=== PATIENT | male | born 1995 | race Caucasian/White ===

== ENCOUNTER 2017-05-18 20:10 | Inpatient (IN) | payer OTHER ==
[2017-05-18] MEDS ORDERED: Fentanyl 100 MCG/2 ML VIAL ONE ×2 (20:21→22:39)
[2017-05-18] MEDS ORDERED: CEFAZOLIN/Water 2 GM/20 ML SYRINGE ONE (20:22)
[2017-05-18 20:30] LABS: #Basophils 0.1 thou/uL (0.0-0.2); #Eosinphils 0.3 thou/uL (0.0-0.7); #Lymphocytes 5.2 thou/uL (1.20-3.40); #Monocytes 1.1 thou/uL (0.11-0.59); %Basophils 0.5 % (0.0-1.0); %Eosinophils 2.9 % (0.0-10.0); %Lymphocytes 48.9 % (28.0-48.0); %Monocytes 10.4 % (0.0-4.0); Hematocrit 44.8 % (42.0-52.0); Mean Platelet Volume 7.3 fL (7.4-10.4); Red Blood Cell (RBC) Count 4.82 mill/uL (4.00-5.20); White Blood Cell (WBC) Count 10.7 thou/uL (4.8-10.8)
[2017-05-18 20:36] LABS: PTT 23.1 SEC (22.9-36.1)
[2017-05-18] MEDS ORDERED: Bacitracin Zinc 1 Packet ONE (20:48)
[2017-05-18 20:50] LABS: ALT (SGPT) 18 U/L (8-55); AST (SGOT) 27 U/L (5-34); Alkaline Phosphatase 62 U/L (Less than 750); Anion Gap 16 mmol/L (10-20); BUN (Urea Nitrogen) 20 mg/dL (8.9-20.6); Bilirubin, Total 0.5 mg/dL (0.2-1.2); Calc. Creatinine Clearance 0 mL/min (70-130); Calcium 9.5 mg/dL (7.8-10.44); Carbon Dioxide 20 mmol/L (22-29); Chloride 105 mmol/L (98-107); Estimated GFR-MDRD 84; Globulin 2.9 g/dL (2.4-3.5); Protein, Total 7.3 g/dL (6.0-8.3)
[2017-05-18] MEDS ORDERED: Adacel (T-DAP) 0.5 ML VIAL ONE (20:53)
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
--- NOTE | 2017-05-18 22:00 | RAD ---
LEFT WRIST TWO VIEWS 05/18/17 HISTORY: Fracture/dislocation with reduction. FINDINGS/IMPRESSION: Overlying fiberglass splint is now in place. There has been partial reduction of the fracture disloca tion of the wrist. Complete disassociation of the lunate from the capitate and scaphoid persists with severe displacement of the scaphoid waist fracture. The scaphoid base remains associated with the kiya beverley adjacent to the distal ulna. The distal scaphoid actually shows lateral dislocation in relation to the distal radius. Displaced radial styloid fracture is also evident. POS: [facility]
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
[2017-05-18 23:20] LABS: Bilirubin Negative (Negative); Blood, Urine Negative (Negative); Glucose, Urine (Dipstick) Negative (Negative); Ketone, Urine Negative (Negative); Nitrite Negative (Negative); Protein, Urine (Dipstick) Negative (Neg-Trace); Urobilinogen 0.2 mg/dL (0.2-1.0)
[2017-05-18] MEDS ORDERED: Fentanyl 250 MCG/5 ML VIAL ONE (23:30)
[2017-05-18] MEDS ORDERED: Midazolam HCl 2 mg/2 ml Vial ONE (23:30)
[2017-05-18] MEDS ORDERED: Bacitracin Zinc Ointment 30 gm TUBE ONE (23:43)
[2017-05-18] MEDS ORDERED: Bupivacaine PF 0.5% 30 ML VIAL ONE (23:43)
[2017-05-19] MEDS ORDERED: Fentanyl 100 MCG/2 ML VIAL ONE ×3 (00:01→05:34)
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
[2017-05-19] MEDS ORDERED: Promethazine HCl 25 MG/ML VIAL SLOW IVP PRN (02:58)
[2017-05-19] MEDS ORDERED: Ondansetron HCl/PF 4 MG/2 ML Vial IVP PRN ×2 (02:58→07:17)
[2017-05-19] MEDS ORDERED: Promethazine HCl 25 MG/ML VIAL IM PRN ×3 (02:58→07:17)
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
[2017-05-19] MEDS ORDERED: Ketorolac Tromethamine 30 MG/ML VIAL IVP SCH (07:17)
[2017-05-19] MEDS ORDERED: Morphine 4 MG/ML Carpuject IVP PRN (07:17)
[2017-05-19] MEDS ORDERED: Ondansetron ODT 4 MG TAB PO PRN (07:17)
[2017-05-19] MEDS ORDERED: Cyclobenzaprine 10 MG TAB PO PRN (07:17)
[2017-05-19] MEDS ORDERED: Dextrose 5% in Water 1,000 ML IV PRN (07:17)
[2017-05-19] MEDS ORDERED: Dextrose 50% Abboject 50 ML SYRINGE SLOW IVP PRN (07:17)
[2017-05-19] MEDS ORDERED: hydrALAZINE 20 MG/ML VIAL SLOW IVP PRN (07:17)
--- NOTE | 2017-05-19 07:45 | RAD ---
EXAM: INTRAPROCEDURE FLUOROSCOPY: COMPARISON: 05/18/16. FINDINGS: Eight intraoperative fluoroscopic view are submitted for interpretation. Fractures are redemonstrate d. Fixation hardware is identified. IMPRESSION: Fluoroscopy as above. POS: [facility]
[2017-05-19] MEDS ORDERED: Morphine 4 MG/ML VIAL SLOW IVP PRN ×2 (07:54→07:55)
[2017-05-19] MEDS: Clindamycin/D5W 900 MG in Premix Bag 1 BAG IVPB SCH ×2 (07:58→11:37)
[2017-05-19] MEDS: Ketorolac Tromethamine 30 MG/ML VIAL IVP SCH ×3 (07:58→17:58)
--- NOTE | 2017-05-19 08:49 | RAD ---
INTRAOPERATIVE FLUOROSCOPIC IMAGES OF RIGHT WRIST: Date: 05/19/17 HISTORY: Right wrist fracture. Internal fixation. COMPARISON: 05/18/17. FINDINGS: There are postsurgical changes related to internal fixation of the fracture involving the distal righ t radial metaphysis in the region of the radial styloid process. There are pins and screws transfixin g the fracture. There is improvement in alignment of the fracture fragments. Fracture involving the b ase of proximal aspect of the metacarpal of the thumb are again present. No other findings. IMPRESSION: 1. Internal fixation of fracture involving the distal right radius. 2. Stable appearance and angulation of fracture involving the proximal right 5th metacarpal of the t humb. POS: [facility]
[2017-05-19] MEDS: Famotidine 20 MG TAB PO SCH ×2 (09:06→21:00)
[2017-05-19] MEDS: Sodium Chloride 0.9% 1,000 ML IV SCH ×2 (09:09→17:58)
[2017-05-19] MEDS: HYDROcodone/Acetaminophen 10/325 mg Tablet PO PRN (09:55)
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
[2017-05-19] MEDS ORDERED: Sterile Water 10 ML VIAL ONE (17:43)
[2017-05-19] MEDS ORDERED: Propofol 200 MG/20 ML VIAL ONE (17:43)
[2017-05-19] MEDS ORDERED: CEFAZOLIN 1 GM VIAL ONE (17:43)
[2017-05-19] MEDS ORDERED: PHENYLEPHRINE-NS 100 MCG/ML 10 ML SYRINGE ONE (17:43)
[2017-05-19] MEDS ORDERED: Ondansetron HCl/PF 4 MG/2 ML Vial ONE (17:43)
[2017-05-19] MEDS ORDERED: Dexamethasone 20 MG/5 ML VIAL ONE (17:43)
[2017-05-19] MEDS ORDERED: Ketorolac Tromethamine 30 MG/ML VIAL ONE (17:43)
[2017-05-19] MEDS ORDERED: Lidocaine 1% PF 5 ML VIAL ONE (17:43)
[2017-05-19] MEDS ORDERED: Succinylcholine Chloride 20 MG/ML 10 ml SYRINGE FS ONE (17:43)
[2017-05-19] MEDS: Gabapentin 300 MG CAP PO SCH (21:00)
[2017-05-20] MEDS: Sodium Chloride 0.9% 1,000 ML IV SCH ×3 (03:13→11:41)
[2017-05-20] MEDS: Ketorolac Tromethamine 30 MG/ML VIAL IVP SCH ×2 (05:47)
[2017-05-20 05:48] LABS: #Eosinphils 0.1 thou/uL (0.0-0.7); #Lymphocytes 2.6 thou/uL (1.20-3.40); #Monocytes 1.3 thou/uL (0.11-0.59); %Basophils 0.3 % (0.0-1.0); %Eosinophils 1.2 % (0.0-10.0); %Lymphocytes 28.5 % (28.0-48.0); Hematocrit 38.1 % (42.0-52.0); Mean Platelet Volume 7.8 fL (7.4-10.4); Red Blood Cell (RBC) Count 4.06 mill/uL (4.00-5.20)
[2017-05-20 06:10] LABS: Anion Gap 9 mmol/L (10-20); BUN (Urea Nitrogen) 13 mg/dL (8.9-20.6); Calc. Creatinine Clearance 0 mL/min (70-130); Calcium 8.7 mg/dL (7.8-10.44); Carbon Dioxide 23 mmol/L (22-29); Chloride 110 mmol/L (98-107); Estimated GFR-MDRD Greater than 90
[2017-05-20] MEDS: Famotidine 20 MG TAB PO SCH ×2 (08:53→22:08)
[2017-05-20] MEDS: Gabapentin 300 MG CAP PO SCH ×2 (08:54→22:08)
[2017-05-20] MEDS ORDERED: Ondansetron HCl/PF 4 MG/2 ML Vial ONE (13:25)
[2017-05-20] MEDS ORDERED: Lidocaine 1% PF 5 ML VIAL ONE (13:25)
[2017-05-20] MEDS ORDERED: Dexamethasone 20 MG/5 ML VIAL ONE (13:25)
[2017-05-20] MEDS ORDERED: PHENYLEPHRINE-NS 100 MCG/ML 10 ML SYRINGE ONE (13:25)
[2017-05-20] MEDS ORDERED: Glycopyrrolate 0.2 MG/ML 5 ML SYRINGE ONE (13:25)
[2017-05-20] MEDS ORDERED: Propofol 200 MG/20 ML VIAL ONE (13:25)
[2017-05-20] MEDS ORDERED: Ketorolac Tromethamine 30 MG/ML VIAL ONE (13:25)
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
[2017-05-20] MEDS ORDERED: Fentanyl 250 MCG/5 ML VIAL ONE (16:58)
[2017-05-20] MEDS ORDERED: Midazolam HCl 2 mg/2 ml Vial ONE (16:58)
[2017-05-20] MEDS ORDERED: Sodium Chloride 0.9% 10 ML ONE (17:12)
[2017-05-20] MEDS ORDERED: Bupivacaine PF 0.5% 30 ML VIAL ONE (17:13)
[2017-05-20] MEDS ORDERED: Sodium Chloride 0.9% 50 ML ONE (17:13)
[2017-05-20] MEDS ORDERED: Betamet Acet/Betamet Na Ph 30 MG/5 ML VIAL ONE (17:14)
[2017-05-20] MEDS ORDERED: Bacitracin Zinc Ointment 30 gm TUBE ONE (17:14)
[2017-05-20] MEDS ORDERED: Clindamycin/D5W 900 mg/50 ml Premix Bag ONE ×2 (17:35→22:24)
[2017-05-20] MEDS ORDERED: Fentanyl 100 MCG/2 ML VIAL ONE ×4 (19:23→23:58)
[2017-05-20] MEDS ORDERED: Promethazine HCl 25 MG/ML VIAL SLOW IVP PRN (22:40)
[2017-05-20] MEDS ORDERED: Promethazine HCl 25 MG/ML VIAL IM PRN (22:40)
[2017-05-20] MEDS ORDERED: Ondansetron HCl/PF 4 MG/2 ML Vial IVP PRN (22:40)
[2017-05-20] MEDS ORDERED: HYDROmorphone 2 MG/ML VIAL SLOW IVP PRN (22:40)
[2017-05-21] MEDS: Sodium Chloride 0.9% 1,000 ML IV SCH ×2 (01:00→09:57)
[2017-05-21] MEDS ORDERED: Bacitracin Zinc Ointment 30 gm TUBE ONE (01:31)
[2017-05-21] MEDS ORDERED: Ondansetron HCl/PF 4 MG/2 ML Vial IVP PRN (02:15)
[2017-05-21] MEDS ORDERED: Promethazine HCl 25 MG/ML VIAL SLOW IVP PRN (02:15)
[2017-05-21] MEDS ORDERED: Promethazine HCl 25 MG/ML VIAL IM PRN ×2 (02:15→02:45)
[2017-05-21] MEDS ORDERED: Sodium Chloride 0.9% 0 ML ONE (02:19)
[2017-05-21] MEDS ORDERED: Fentanyl 100 MCG/2 ML VIAL ONE ×3 (02:20→02:56)
[2017-05-21] MEDS ORDERED: Morphine 4 MG/ML VIAL SLOW IVP PRN ×2 (02:44→18:52)
[2017-05-21] MEDS ORDERED: Meperidine HCl/PF 25 MG/ML VIAL IM PRN (02:44)
[2017-05-21] MEDS ORDERED: CEFAZOLIN 1 GM in Sodium Chloride 0.9% 100 ML IVPB SCH (06:00)
[2017-05-21] MEDS: Gentamicin Sulfate 80 MG in Premix Bag 1 BAG IVPB SCH ×3 (06:02→21:09)
[2017-05-21] MEDS: Ketorolac Tromethamine 30 MG/ML VIAL IVP SCH ×3 (06:02→17:38)
[2017-05-21] MEDS: Pregabalin 50 MG CAP PO SCH ×3 (06:03→21:09)
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
[2017-05-21] MEDS: Famotidine 20 MG TAB PO SCH ×2 (08:19→20:59)
[2017-05-21] MEDS: Gabapentin 300 MG CAP PO SCH (08:20)
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
[2017-05-21] MEDS: CEFAZOLIN 1 GM, Syringe 2.5 ML in Sterile Water 7.5 ML SLOW IVP SCH ×2 (12:39→17:48)
--- NOTE | 2017-05-21 14:06 | RAD ---
LEFT WRIST THREE FLUOROSCOPIC IMAGES: Indications: Intraoperative internal fixation procedure. FINDINGS: These images show pins transfixing the carpal bones. Screw and pins also seen overlying the distal ra dius. POS: [facility]
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
[2017-05-21] MEDS: cloNIDine 0.1 MG TAB PO SCH ×2 (15:47→21:09)
[2017-05-21] MEDS: Bacitracin Zinc 1 Packet TOP SCH (15:52)
[2017-05-21] MEDS: HYDROcodone/Acetaminophen 10/325 mg Tablet PO PRN ×2 (16:01→21:45)
[2017-05-22] MEDS: CEFAZOLIN 1 GM, Syringe 2.5 ML in Sterile Water 7.5 ML SLOW IVP SCH ×2 (00:11→05:23)
[2017-05-22] MEDS: Ketorolac Tromethamine 30 MG/ML VIAL IVP SCH ×4 (00:12→18:06)
[2017-05-22] MEDS: cloNIDine 0.1 MG TAB PO SCH ×4 (03:43→21:59)
[2017-05-22] MEDS: Pregabalin 50 MG CAP PO SCH ×3 (05:23→21:57)
[2017-05-22] MEDS: Famotidine 20 MG TAB PO SCH ×2 (08:53→21:57)
[2017-05-22] MEDS: Bacitracin Zinc 1 Packet TOP SCH ×2 (08:53→21:58)
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
[2017-05-22 16:30] VITALS: BMI 29.0
[2017-05-23] MEDS: Ketorolac Tromethamine 30 MG/ML VIAL IVP SCH ×4 (00:24→17:03)
[2017-05-23] MEDS: Pregabalin 50 MG CAP PO SCH ×3 (05:32→21:14)
[2017-05-23] MEDS: cloNIDine 0.1 MG TAB PO SCH ×4 (05:33→21:21)
[2017-05-23] MEDS: Docusate 100 MG CAP PO SCH (08:15)
[2017-05-23] MEDS: Bacitracin Zinc 1 Packet TOP SCH ×2 (08:15→21:06)
[2017-05-23] MEDS: Famotidine 20 MG TAB PO SCH ×2 (08:15→21:13)
[2017-05-23] MEDS: Senokot 8.6 MG TAB PO SCH (08:15)
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
[2017-05-23] MEDS: HYDROcodone/Acetaminophen 10/325 mg Tablet PO PRN (16:26)
[2017-05-23] MEDS ORDERED: Ascorbic Acid 500 mg Chewable Tablet PO SCH (19:00)
[2017-05-24] MEDS: Ketorolac Tromethamine 30 MG/ML VIAL IVP SCH ×3 (00:31→12:51)
[2017-05-24] MEDS: cloNIDine 0.1 MG TAB PO SCH ×2 (05:00→09:44)
[2017-05-24] MEDS: Pregabalin 50 MG CAP PO SCH (05:02)
[2017-05-24] MEDS: Senokot 8.6 MG TAB PO SCH (08:17)
[2017-05-24] MEDS: Docusate 100 MG CAP PO SCH (08:18)
[2017-05-24] MEDS: Famotidine 20 MG TAB PO SCH (08:18)
[2017-05-24] MEDS: Bacitracin Zinc 1 Packet TOP SCH (08:18)
[2017-05-24] MEDS ORDERED: Ascorbic Acid 500 mg Chewable Tablet PO SCH (09:00)
[2017-05-24] MEDS: HYDROcodone/Acetaminophen 10/325 mg Tablet PO PRN (09:47)
[2017-05-24 12:50] VITALS: BP 121/71; TEMP 98.5
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
[2017-05-25] MEDS ORDERED: Lisinopril 10 MG TAB PO SCH (09:00)
== END 2017-05-24 14:06 | disposition home or self-care (01) | DRG 500 ==
LOC: ERS 20:10 → EDBD 20:10 → SURG B 05-19 00:20 → SDC/OP 05-19 00:21 → SURG B 05-19 05:17
PROVIDERS: ADMIT Surgery; ATTEND Surgery
PROC: 0LQ60ZZ Repair Left Lower Arm and Wrist Tendon, Open Approach (ICD-10-PCS; principal; 2017-05-21)
PROC: 0PUH07Z Supplement Right Radius with Autologous Tissue Substitute, Open Approach (ICD-10-PCS; 2017-05-21)
PROC: 0PSM04Z Reposition Right Carpal with Internal Fixation Device, Open Approach (ICD-10-PCS; 2017-05-21)
PROC: 0PSN04Z Reposition Left Carpal with Internal Fixation Device, Open Approach (ICD-10-PCS; 2017-05-21)
PROC: 01Q40ZZ Repair Ulnar Nerve, Open Approach (ICD-10-PCS; 2017-05-21)
PROC: 0PHH34Z Insertion of Internal Fixation Device into Right Radius, Percutaneous Approach (ICD-10-PCS; 2017-05-21)
PROC: 01Q50ZZ Repair Median Nerve, Open Approach (ICD-10-PCS; 2017-05-21)
PROC: 0RBN0ZZ Excision of Right Wrist Joint, Open Approach (ICD-10-PCS; 2017-05-21)
PROC: 0PSJ04Z Reposition Left Radius with Internal Fixation Device, Open Approach (ICD-10-PCS; 2017-05-21)
PROC: 0PSH04Z Reposition Right Radius with Internal Fixation Device, Open Approach (ICD-10-PCS; 2017-05-21)
DX: S62.101A Fracture of unspecified carpal bone, right wrist, initial encounter for closed fracture (principal); S52.511B Displaced fracture of right radial styloid process, initial encounter for open fracture type I or II; S52.512A Displaced fracture of left radial styloid process, initial encounter for closed fracture; S52.612A Displaced fracture of left ulna styloid process, initial encounter for closed fracture; S62.102A Fracture of unspecified carpal bone, left wrist, initial encounter for closed fracture; S66.892A Other injury of other specified muscles, fascia and tendons at wrist and hand level, left hand, initial encounter; S62.231A Other displaced fracture of base of first metacarpal bone, right hand, initial encounter for closed fracture; S80.211A Abrasion, right knee, initial encounter; S63.095A Other dislocation of left wrist and hand, initial encounter; T14.8XXA Other injury of unspecified body region, initial encounter; V29.9XXA Motorcycle rider (driver) (passenger) injured in unspecified traffic accident, initial encounter; Y92.410 Unspecified street and highway as the place of occurrence of the external cause
CPT/HCPCS: 26645; 36415; 70450; 71010; 72125; 72170; 76001; 80048; 80053; 81003; 85025; 85610; 85730; 86850; 86900; 86901; 90471; 90715; 94760; 96374; 96375; 96376; 99152; 99153; A4216; C1713; G0390; G8978-GP-CI; G8979-GP-CI; G8980-GP-CI; G8987-GO-CM; G8988-GO-CM; G8989-GO-CM; J0360; J0690; J0702; J1100; J1170; J1580; J1885; J2001; J2250; J2270; J2405; J2704; J3010; J3490; J7050; S0020

== ENCOUNTER 2017-07-25 09:28 | Outpatient (CLI) | payer OTHER ==
[2017-07-25 09:56] LABS: #Eosinphils 0.2 thou/uL (0.0-0.7); #Lymphocytes 2.2 thou/uL (1.20-3.40); #Monocytes 0.6 thou/uL (0.11-0.59); #Neutrophils 2.9 thou/uL (1.40-6.50); %Basophils 0.7 % (0.0-1.0); %Eosinophils 3.5 % (0.0-10.0); %Lymphocytes 36.7 % (28.0-48.0); %Monocytes 9.8 % (0.0-4.0); %Neutrophils 49.3 % (31.0-61.0); Hemoglobin 15.4 g/dL (14.0-18.0); Mean Corpuscular HGB CONC 35.2 g/dL (32.0-36.0); Mean Corpuscular Hemoglobin 31.6 pg (25.0-35.0); Mean Corpuscular Volume 89.8 fl (77.0-87.0); Mean Platelet Volume 7.3 fL (7.4-10.4); Platelet Count 225 thou/uL (130-400); RBC Distribution Width 11.8 % (11.5-14.5); Red Blood Cell (RBC) Count 4.89 mill/uL (4.00-5.20)
== END 2017-07-25 09:29 | disposition home or self-care (01) ==
LOC: LABBT 09:28
PROVIDERS: ATTEND Orthopaedic Surgery Hand Surgery
DX: Z01.812 Encounter for preprocedural laboratory examination (principal); T84.84XA Pain due to internal orthopedic prosthetic devices, implants and grafts, initial encounter
CPT/HCPCS: 85025; 85652

== ENCOUNTER 2017-07-28 12:25 | Day surgery (SDC) | payer OTHER ==
[2017-07-25 09:14] VITALS: BMI 26.5
[2017-07-28] MEDS ORDERED: Fentanyl 100 MCG/2 ML VIAL ONE (13:02)
[2017-07-28] MEDS ORDERED: Midazolam HCl 2 mg/2 ml Vial ONE (13:02)
[2017-07-28] MEDS ORDERED: Thrombin 5000 UNITS/5 ML VIAL ONE (13:42)
[2017-07-28] MEDS ORDERED: Lidocaine 1% (PF) 30 ML VIAL ONE (13:42)
[2017-07-28] MEDS ORDERED: Bacitracin Zinc Ointment 30 gm TUBE ONE (13:42)
[2017-07-28] MEDS ORDERED: Bupivacaine PF 0.5% 30 ML VIAL ONE (13:42)
[2017-07-28] MEDS ORDERED: Sodium Chloride 0.9% 10 ML ONE (13:42)
[2017-07-28] MEDS ORDERED: CEFAZOLIN/Water 2 GM/20 ML SYRINGE ONE (13:43)
[2017-07-28] MEDS ORDERED: Clindamycin/D5W 600 mg/50 ml Premix Bag ONE (13:44)
[2017-07-28] MEDS ORDERED: Dexamethasone 20 MG/5 ML VIAL ONE (14:52)
[2017-07-28] MEDS ORDERED: Lidocaine 1% PF 5 ML VIAL ONE (14:52)
[2017-07-28] MEDS ORDERED: Ondansetron HCl/PF 4 MG/2 ML Vial ONE (14:52)
[2017-07-28] MEDS ORDERED: PROPOFOL 200 MG/20 ML VIAL ONE (14:52)
[2017-07-28] MEDS ORDERED: Ketorolac Tromethamine 30 MG/ML VIAL ONE ×2 (16:25)
[2017-07-28] MEDS ORDERED: Meperidine HCl/PF 25 MG/ML VIAL ONE (16:27)
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
--- NOTE | 2017-07-29 07:00 | OP ---
DATE OF PROCEDURE: 07/28/2017 PREOPERATIVE DIAGNOSES: Right and left wrist (intercarpal) joints, multifocal pinning with retained painful wires, 4 painful wires on each side, but 2 also in distal radius on the right side. POSTOPERATIVE DIAGNOSES: Right and left wrist (intercarpal) joints, multifocal pinning with retained painful wires, 4 painful wires on each side, but 2 also in distal radius on the right side. PROCEDURES PERFORMED: 1. Right wrist: A. C-arm supervision less than 1 hour. B. Removal of painful deep wires from 4 different incisions, K-wires buried intercarpal. The follow ing joints on the right; lunotriquetral, scapholunate, scaphocapitate, and capitate lunate with explo ration of the distal radius showing the wire (01:18) did not need removal. Procedure at the left wrist: A. C-arm supervision. B. Excision via open technique of 4 painful wires with the following joints: Capitolunate joint x2 , lunotriquetral joint, scaphocapitate. SURGEON: Max Maxwell M.D. TOURNIQUET TIME: On the left 70 minutes, on the right 22 minutes. INDICATIONS: The patient is now 10 weeks after open trans-scaphoid perilunate dislocation and fractu re on the left and a right side trans-radial scapholunate ligament tear perilunate dislocation on the right side. He has wires that migrated and appears to be at a safe interval healing for removal of wires to advance motion. Also note, splints were applied, ulnar gutter on both sides. DESCRIPTION OF PROCEDURE: After successful general LMA technique, the limb was prepped and draped. The patient had timeout accomplished. We brought C-arm onto the field on left side, exsanguinated th e limb, inflated tourniquet to 250 mmHg pressure just after doing time-out. We then used a technique of using a [place] with multiple markings on the skin to localize the wires as best as possible and fo rm the sagittal plane. I exsanguinated the limb, inflated tourniquet, then first removed the ulnar s noé where the triquetral wire over 3 mm incision. We then made 3 separate incisions to remove the 2 capitate lunate wires and the scaphocapitate wires. Hemostasis was obtained, released the tourniquet , and closed this with simple 4-0 nylon interrupted simple pattern. We injected the area with a tota l of 10 mL and divided equally amongst the 4 incisions. We repeated the mirror image, incision was made to proceed on the right side, tourniquet time was 22 minutes and we extended. We have one incision, we placed a 5 mm of the radius styloid because it cheyanne eared that one might be protruding. We dissected down to the wire after reflecting the tendons and p rotecting the superficial radial nerve. The wire was completely encased in bone as well as the screw adjacent to it, so we did not move into 2 radial wires on the right side. The right side also underwent release of tourniquet, hemostasis, and closure. Ulnar gutter splint ap plication over dressing. He left the operating room without evidence of anesthetic or operative comp lications. C-arm show on the left side in anatomic position with scaphoid fracture healed. On the r ight side, we had 2 mm scapholunate interval at the mid carpal joint, 3.5 mm at the radiocarpal joint .
--- NOTE | 2017-07-29 07:39 | RAD ---
TWO FLUORSCOPIC VIEWS OF THE LEFT WRIST: Indication: Pin removal. Comparison: Left wrist radiograph, 05-20-17. FINDINGS: Since the comparison examination there has been interval removal of the Kirshner wires transfixing th e capitate with lunate. Screw fixation of the sphenoid is similar. Suture anchors involving the triqu etrum, lunate and distal radius is similar. Carpal alignment appears within normal limits. Vascular s taples overlying the dorsal aspect of the distal radius is similar. IMPRESSION: Removal of hardware as above. POS: FAVIO
== END 2017-07-28 17:40 | disposition home or self-care (01) ==
LOC: SDC 12:25
PROVIDERS: ATTEND Orthopaedic Surgery Hand Surgery
PROC: 0XP70YZ Removal of Other Device from Left Upper Extremity, Open Approach (ICD-10-PCS; principal; 2017-07-28)
PROC: 0XP60YZ Removal of Other Device from Right Upper Extremity, Open Approach (ICD-10-PCS; principal; 2017-07-28)
DX: T84.84XA Pain due to internal orthopedic prosthetic devices, implants and grafts, initial encounter (principal); Z79.899 Other long term (current) drug therapy; Z98.890 Other specified postprocedural states
CPT/HCPCS: 76000; 96372; 96374; A4216; J1100; J1885; J2001; J2175; J2250; J2405; J2704; J3010; J3490; S0020

== ENCOUNTER 2018-06-05 05:46 | Day surgery (SDC) | payer OTHER ==
[2018-06-04 12:16] VITALS: BMI 30.8
[2018-06-05] MEDS ORDERED: Bupivacaine PF 0.5% 30 ML VIAL ONE (06:37)
[2018-06-05] MEDS ORDERED: Bacitracin Zinc Ointment 30 gm TUBE ONE ×2 (06:37)
[2018-06-05] MEDS ORDERED: Sodium Chloride 0.9% 0 ML ONE (06:38)
[2018-06-05] MEDS ORDERED: CEFAZOLIN 2 GM/50 ML BAG ONE (06:55)
[2018-06-05] MEDS ORDERED: Fentanyl 100 MCG/2 ML VIAL ONE (06:58)
[2018-06-05 07:12] LABS: #Eosinphils 0.3 thou/uL (0.0-0.7); #Lymphocytes 2.4 thou/uL (1.20-3.40); #Monocytes 0.7 thou/uL (0.11-0.59); #Neutrophils 2.9 thou/uL (1.40-6.50); %Basophils 0.3 % (0.0-1.0); %Eosinophils 5.2 % (0.0-10.0); %Lymphocytes 37.8 % (21.0-51.0); %Monocytes 10.9 % (0.0-10.0); %Neutrophils 45.7 % (42.0-75.0); Hemoglobin 15.7 g/dL (14.0-18.0); Mean Corpuscular HGB CONC 34.2 g/dL (32.0-36.0); Mean Corpuscular Volume 87.8 fL (78.0-98.0); Mean Platelet Volume 7.5 fL (7.4-10.4); Platelet Count 238 thou/uL (130-400); RBC Distribution Width 11.4 % (11.5-14.5); Red Blood Cell (RBC) Count 5.22 mill/uL (4.70-6.10); White Blood Cell (WBC) Count 6.2 thou/uL (4.8-10.8)
[2018-06-05] MEDS ORDERED: Betamet Acet/Betamet Na Ph 30 MG/5 ML VIAL ONE (08:01)
[2018-06-05] MEDS ORDERED: Meperidine HCl/PF 25 MG/ML VIAL ONE (08:34)
--- NOTE | 2018-06-05 11:17 | RAD ---
LEFT WRIST THREE VIEWS: History: Hardware removal. Comparison: 07-28-17 FINDINGS: The transversely oriented screw in the distal radius has been removed as well as a distal radial pin. Stable screw and other post-operative changes involving the scaphoid bone, lunate and triquetrum and distal radius. IMPRESSION: Removal of the transverse screw and internal fixation pin from the distal radius compared to the prio r 07-28-17 study. POS: RONALD
--- NOTE | 2018-06-05 15:26 | OP ---
DATE OF PROCEDURE: 06/05/2018 PREOPERATIVE DIAGNOSES: Left distal radius implant with pain, styloid and dorsal radius K-wire, and one cannulated screw. PROCEDURES PERFORMED: 1. C-arm supervision. 2. Removal of cannulated screw and K-wire, both deep buried in bone, periarticular. FINDINGS: without loss of distal radiocarpal joint space. INDICATION: The patient returned and complained of pain over radial styloid and tenderness with certain motion. We discussed the removal of the radial styloid implants, the K-wire, and the screw, but will not do intra-articular removal of the scaphoid screw, as this will leave him with a deficit in the center of his bone and cause marked joint capsule narrowing. ANESTHESIA: General LMA technique, injecting by Lucila Anesthesia, total of 20 mL of 0.5% Marcaine; 10 aki-incisional and 10 after incision was closed. DESCRIPTION OF PROCEDURE: After successful general LMA technique, the limb was prepped and draped. Time-out was done appropriately and brought into the field. We realized we could reach to get all the implants to the one midlateral screw over the first dorsal compartment. We then exsanguinated the limb, inflated the tourniquet to 250 mmHg pressure. We excised the old scar and made an incision using the previous incision of the skin and subcutaneous tissue. We saw the superficial radial nerve and did a small neuroplasty and then brought into the field. Released the dorsal part of first dorsal compartment remnant, retracted the tendons and then was able to localize the screw. We removed the screw with the appropriate jukebox route driver. No complications. Small bursa was seen. Then, we used the C-arm to localize the K-wire, made a 1 cm hole in the retinaculum and retracted the extensor pollicis longus, them from the extensor digitorum communis which overlie and then used the C-arm to localize the wire. We removed the wire with small needle perez. We released the tourniquet. We obtained hemostasis. Placed 3 mL of Celestone along the superficial radial nerve to prevent irritation. Had full hemostasis, closed the retinaculum, which was 1 cm open with interrupted 3-0 Monocryl undyed. Subcutaneous was closed with 4-0 Monocryl undyed, and the skin was reapproximated with 4-0 nylon simple pattern. The patient had a bulky dressing applied without a splint. C-arm pictures showed the wires and the screw that was intended to be removed was gone and the patient left the operating room without anesthetic operative complications. Job ID: [id number]
[2018-06-05] MEDS ORDERED: ePHEDrine/0.9% NaCl/PF SYRINGE 50 mg/10 ml ONE (20:55)
[2018-06-05] MEDS ORDERED: Ketorolac Tromethamine 30 MG/ML VIAL ONE (20:55)
[2018-06-05] MEDS ORDERED: Dexamethasone 20 MG/5 ML VIAL ONE (20:55)
[2018-06-05] MEDS ORDERED: Ondansetron PF 4 MG/2 ML Vial ONE (20:55)
[2018-06-05] MEDS ORDERED: PHENYLEPHRINE-NS 100 MCG/ML 10 ML SYRINGE ONE (20:55)
[2018-06-05] MEDS ORDERED: PROPOFOL 200 MG/20 ML VIAL ONE (20:55)
[2018-06-05] MEDS ORDERED: Lidocaine 1% PF 5 ML VIAL ONE (20:55)
== END 2018-06-05 10:30 | disposition home or self-care (01) ==
LOC: SDC 05:46
PROVIDERS: ATTEND Orthopaedic Surgery Hand Surgery
PROC: 0PPJ04Z Removal of Internal Fixation Device from Left Radius, Open Approach (ICD-10-PCS; principal; 2018-06-05)
DX: T84.84XA Pain due to internal orthopedic prosthetic devices, implants and grafts, initial encounter (principal); I10 Essential (primary) hypertension; Z98.890 Other specified postprocedural states
CPT/HCPCS: 76001; 85025; 85652; 96374; J0702; J1100; J1885; J2001; J2175; J2405; J2704; J3010; J3490; S0020